=== PATIENT | female | born 1960 ===

== ENCOUNTER 2018-05-07 11:30 | Observation (INO) | payer BC ==
[2018-05-07] VITALS (9 sets, daily range): BP systolic 107–129; BP diastolic 68–80
[~2018-05-07] VITALS: Ht 157.5 cm; Wt 61.7 kg
[~2018-05-07 11:30] MED LIST: ALPRAZOLAM0.5 M2 ORAL; AMITRIPTYLINE25 MG ORAL; DOXYCYCLINE MO100 MG ORAL; FERROUS SULFAT325 MG ORAL; PREMARIN0.625 MG ORAL; SULFAMETHOXAZOLE PO; TRAMADOL HCL50 MG ORAL; VITAMIN D35000 UNIT PO; VITAMIN K2 PO
--- NOTE | 2018-05-07 12:48 | Anethesia Preoperative Eval ---
Anesthesia Pre-op PMH/ROS General Date of Evaluation: May 07, 2018 Anesthesiologist: Bunny ASA Score: ASA 2 Mallampati Score Class I : Soft palate, uvula, fauces, pillars visible Class II: Soft palate, uvula, fauces visible Class III: Soft palate, base of uvula visible Class IV: Only hard plate visible Mallampati Classification: Class II Surgeon: Eric Diagnosis: Left breast hematoma Surgical Procedure: Evacuation of left breast hematoma Anesthesia History: none Family History: no anesthesia problems Allergies: Coded Allergies: LACTOSE (Verified Allergy, Intermediate, 05/06/18) JOINT PAIN, SWELLING Mushroom (Verified Allergy, Intermediate, 05/06/18) JOINT PAIN, SWELLING PEANUT (Verified Allergy, Intermediate, 05/06/18) JOINT PAIN, SWELLING Pistachio (Verified Allergy, Intermediate, 05/06/18) JOINT PAIN, SWELLING Medications: see eMAR Past Medical History Cardiovascular: Denies: HTN, CAD, [place], valve dz, arrhythmia, other Pulmonary: Denies: asthma, COPD, TAMIE, other Gastrointestinal/Genitourinary: Denies: GERD, CRI, ESRD, other Neurologic/Psychiatric: Reports: depression/anxiety; Denies: dementia, CVA, TIA, other Endocrine: Denies: DM, hypothyroidism, steroids, other HEENT: Denies: cataract (L), cataract (R), glaucoma, [place] (L), [place] (R), other Hematology/Immune: Denies: anemia, DVT, bleeding disorder, other Musculoskeletal/Integumentary: Reports: other - RA; Denies: OA, RA, DJD, DDD, edema PSxH Narrative: Tummy tuck, bilateral breast surgery Anesthesia Pre-op Phys. Exam Physician Exam Last Vital Signs Date Time Temp Pulse Resp B/P (MAP) Pulse Ox O2 Delivery O2 Flow Rate FiO2 05/07/18 12:04 Room Air 05/07/18 12:03 97.4 74 18 112/73 (86) 97 97.4 Constitutional: NAD Cardiovascular: RRR Respiratory: CTA Airway Exam Mallampati Score: Class II MO: full ROM: full Teeth: intact Anesthesia Pre-op A/P Labs see chart Studies Pre-op Studies: EKG - sr Risk Assessment & Plan Assessment: ASA II Plan: GA Status Change Before Surgery: No Pre-Antibiotics Drug: Ancef 1g Given Within 1 Hr of Incision: Yes Rojas-[place],Linda MD May 07, 2018 12:48
[2018-05-07] MEDS ORDERED: Lidocaine 1% Plain 30 ml INJ ONE (13:23)
[2018-05-07] MEDS ORDERED: Bupivacaine 0.25% Inj 30ml INJ ONE (13:23)
[2018-05-07] MEDS ORDERED: Bacitracin 50000 Units Vial ONE (13:23)
[2018-05-07] MEDS ORDERED: NeoSporin Gu Irrig 1ml Amp IRRIG ONE (13:24)
[2018-05-07 13:41] LABS: BASOPHILS % (AUTO) 0.9 % (0.0-2.0); EOSINOPHILS % (AUTO) 2.6 % (0.0-3.0); HEMOGLOBIN 10.5 G/DL (12.0-16.0); LYMPHOCYTES % (AUTO) 21.6 % (20.0-45.0); MEAN CORPUSCULAR VOLUME 89 FL (80-99); MONOCYTES % (AUTO) 6.6 % (1.0-10.0); NEUTROPHILS % (AUTO) 68.3 % (45.0-75.0); PLATELET COUNT 350 K/UL (150-450); RED BLOOD COUNT 3.58 M/UL (4.20-5.40); RED CELL DISTRIBUTION WIDTH 13.3 % (11.6-14.8); WHITE BLOOD COUNT 7.1 K/UL (4.8-10.8)
[2018-05-07] MEDS ORDERED: Zemuron 50mg/5ml Inj IV ONE (13:41)
--- NOTE | 2018-05-07 13:43 | Pre-Procedure Note/Attestation ---
Pre-Procedure Note/Attestation Complete Prior to Procedure Planned Procedure: left Procedure Narrative: hematoma of left breast status post hematoma left breastand open capsulotomy 10 days ago Attestation I attest that I discussed the nature of the procedure; its benefits; risks and complications; and alternatives (and the risks and benefits of such alternatives ), prior to the procedure, with the patient (or the patient's legal sales account representative). I attest that, if there was a reasonable possibility of needing a blood transfusion, the patient (or the patient's legal sales account representative) was given the [facility] standardized written summary, pursuant to the Teo Elder Blood Safety Act ([place] Health and Safety Code # 1645, as amended). I attest that I re-evaluated the patient just prior to the surgery and that there has been no change in the patient's H&P, except as documented below: Richard Reyes MD May 07, 2018 13:43
[2018-05-07] MEDS ORDERED: LR 1000ml ONE (14:00)
[2018-05-07] MEDS ORDERED: NS Irrig 1000ml ONE (14:00)
[2018-05-07] MEDS ORDERED: Lidocaine 1% MPF 10mg/ml 5ml ONE (14:24)
[2018-05-07] MEDS ORDERED: Midazolam 2mg/2ml Inj ONE (14:24)
[2018-05-07] MEDS ORDERED: Propofol 200mg/20ml IV ONE (14:24)
[2018-05-07] MEDS ORDERED: fentaNYL 100 mcg/2 mL IV ONE (14:24)
[2018-05-07] MEDS ORDERED: LR 1000ml 1,000 ML IVLG SCH (14:29)
[2018-05-07] MEDS ORDERED: fentaNYL 100 mcg/2 mL IV PRN (14:30)
[2018-05-07] MEDS ORDERED: Labetalol 5mg/ml 20ml vial IV PRN (14:30)
[2018-05-07] MEDS ORDERED: LORazepam Inj 2mg/ml 1ml IV PRN (14:30)
[2018-05-07] MEDS ORDERED: Midazolam 2mg/2ml Inj IVP PRN (14:30)
[2018-05-07] MEDS ORDERED: DiphenhydrAMINE 50mg/ml Inj IVP PRN (14:30)
[2018-05-07] MEDS ORDERED: Metoclopramide 10mg/2ml Inj IVP PRN (14:30)
[2018-05-07] MEDS ORDERED: Hydromorphone 0.5mg/0.5ml inj IVP PRN (14:30)
[2018-05-07] MEDS ORDERED: Bacitracin Oint 15gm Tube TOPIC ONE ×2 (14:35→14:48)
[2018-05-07] MEDS ORDERED: Bacitracin 50000 Units Vial IRRIG ONE (14:35)
--- NOTE | 2018-05-07 15:07 | Immediate Post-Op Evaluation ---
Immediate Post-Op Evalulation Immediate Post-Op Evalulation Procedure: Evacuation of left breast and bilateral neck hematoma Date of Evaluation: May 07, 2018 Time of Evaluation: 15:01 IV Fluids: 500 Blood Products: 0 Estimated Blood Loss: 350 Urinary Output: 0 Blood Pressure Systolic: 114 Blood Pressure Diastolic: 68 Pulse Rate: 72 Respiratory Rate: 16 O2 Sat by Pulse Oximetry: 99 Temperature (Fahrenheit): 97 Pain Score (1-10): 0 Nausea: No Vomiting: No Complications 0 Patient Status: awake, reacts, patent, none Hydration Status: adequate Drug: Ancef 1g Given Within 1 Hr of Incision: Yes Time Given: 14:15 Linda Lugo MD May 07, 2018 15:07
--- NOTE | 2018-05-07 15:08 | 48 Hour Post Anesthesia Eval ---
Post Anesthesia Evaluation Procedure: Evacuation of left breast and bilateral neck hematoma Date of Evaluation: May 07, 2018 Nausea: No Vomiting: No Pain Intensity: 0 Hydration Status: adequate Cardiopulmonary Status: at baseline Mental Status/LOC: patient returned to baseline Post-Anesthesia Complications: 0 Follow-up care needed: ready to discharge Linda Lugo MD May 07, 2018 15:08
[2018-05-07] MEDS ORDERED: Phytonadione 10 mg/mL 1ml amp SUBQ SCH (15:15)
[2018-05-07] MEDS: Norco 5mg/325mg tab ORAL PRN ×2 (17:37→21:49)
[2018-05-07] MEDS: Bactrim-DS 1 tab ORAL SCH (17:38)
[2018-05-08] VITALS: BP 121/75
[2018-05-08 04:00] VITALS: BP 114/76
[2018-05-08] MEDS: Norco 5mg/325mg tab ORAL PRN (05:11)
[2018-05-08] MEDS: Bactrim-DS 1 tab ORAL SCH (07:32)
--- NOTE | 2018-05-08 07:32 | 48 Hour Post Anesthesia Eval ---
Post Anesthesia Evaluation Procedure: Evacuation of left breast and bilateral neck hematoma Date of Evaluation: May 08, 2018 Time of Evaluation: 07:31 Blood Pressure Systolic: 116 0: 58 Pulse Rate: 64 Respiratory Rate: 20 Temperature (Fahrenheit): 97.5 O2 Sat by Pulse Oximetry: 98 Airway: patent Nausea: No Vomiting: No Pain Intensity: 2 Hydration Status: adequate Cardiopulmonary Status: stable Mental Status/LOC: patient returned to baseline Follow-up Care/Observations: n/a Post-Anesthesia Complications: none Follow-up care needed: N/A Shawn Ocampo MD May 08, 2018 07:32
[2018-05-08 12:00] VITALS: BP 117/73
[2018-05-08 13:49] LABS: BASOPHILS % (AUTO) 0.4 % (0.0-2.0); EOSINOPHILS % (AUTO) 0.6 % (0.0-3.0); HEMOGLOBIN 10.7 G/DL (12.0-16.0); LYMPHOCYTES % (AUTO) 12.3 % (20.0-45.0); MEAN CORPUSCULAR VOLUME 89 FL (80-99); MONOCYTES % (AUTO) 4.5 % (1.0-10.0); NEUTROPHILS % (AUTO) 82.2 % (45.0-75.0); PLATELET COUNT 346 K/UL (150-450); RED CELL DISTRIBUTION WIDTH 13.1 % (11.6-14.8); WHITE BLOOD COUNT 9.7 K/UL (4.8-10.8)
[2018-05-08 13:56] LABS: INR 0.9 (0.9-1.1)
[2018-05-08 14:08] LABS: ANION GAP 8 mmol/L (5-15); BLOOD UREA NITROGEN 9 mg/dL (7-18); CALCIUM 8.7 MG/DL (8.5-10.1); CARBON DIOXIDE 27 MMOL/L (21-32); CHLORIDE 93 MMOL/L (98-107); CREATININE 0.5 MG/DL (0.55-1.30); SODIUM 128 MMOL/L (136-145)
[2018-05-08] MEDS ORDERED: BACTRIM DS TAB1 EAC1 ORAL (14:44)
--- NOTE | 2018-05-08 20:45 | Operative Note - Dictated ---
DATE OF OPERATION: PREOPERATIVE DIAGNOSIS: Left breast encapsulation. POSTOPERATIVE DIAGNOSIS: Left breast encapsulation. PROCEDURE PERFORMED: Left breast open capsulotomy. SURGEON: Richard Reyes M.D. PAN DEVULCANIZER HELPER: None. ANESTHESIOLOGIST: Linda Lugo M.D. PREOPERATIVE DIAGNOSIS: Hematoma left breast status post open capsulotomy left side with vertical lift on both sides. She also has a posterior reverse neck lift. The patient had some minor bruising in both sides of the neck with a tiny what appeared to be a little bubble on both sides and hematoma of the left breast that was 10 days ago, we evacuated 200 mL of blood. The patient was told that there is more blood in there that the blood would be liquified at this point and would be easily removed and we might put a needle in the left neck to see if there is any blood. The patient understood the risks, complications, and alternative methods of treatment. The patient had realistic expectations and was brought to the operating room and placed in supine position and given general inhalation anesthesia, was prepped and then injected with 1% Xylocaine 1:200,000 of epinephrine. I entered into the space and then placed a metal suction tip, raised the tip into the pocket, irrigated, suctioned out and got approximately 300 mL of saline and blood. The patient then was closed using a 3-0 Vicryl suture in the dermis and a 4-0 interrupted suture in the skin. We then turned our attention to the other area, which was the neck on both sides. In pressing the area, a tiny little blood just popped. It was cyst and it flattened out completely. I attempted to take out some blood from the left side of the neck and there was less than a mL. On the right side, there was . The patient was then extubated and transferred to the postoperative recovery facility in satisfactory condition with 4x4s and bacitracin over the incision and the neck just in cold compressors. Blood loss of the left breast was approximately between 275 mL and 300 mL and the left side of the neck was less than a mL. Richard Reyes M.D. DR: DANIELLE JOB#: [id number] CC: LAURIE
--- NOTE | 2018-05-09 | Consultation ---
DATE OF CONSULTATION: 05/08/2018 HEMATOLOGY/ONCOLOGY CONSULTATION CONSULTING PHYSICIAN: Arias Hansen M.D. REFERRING PHYSICIAN: Richard Reyes M.D. REASON FOR CONSULTATION: Bleeding diathesis. IDENTIFICATION DATA: Dear Dr. Reyes, The patient is a pleasant 57-year-old female, recently admitted to [facility] for hematoma evaluation along the left neck and the left breast, history of bleeding diathesis. Apparently, the patient had recent surgery at this site and has had prolonged bleeding. No history of bleeding diathesis in the mother or father or first-degree relatives. Procedure performed without any complications. H and H checked afterwards. INR 0.9. Hemoglobin 10.7. Hematology/Oncology service was consulted for evaluation and underlying treatment of potential bleeding diathesis. PAST MEDICAL HISTORY: Anemia of iron deficiency. Otherwise, none noted. PAST SURGICAL HISTORY: Open capsulotomy 10 days ago status post hematoma. ALLERGIES: , mushroom, peanuts, pistachio. SOCIAL HISTORY: No alcohol, tobacco, or illicit drug use. REVIEW OF SYSTEMS: A 12-point review of systems is completed. Otherwise, negative. PHYSICAL EXAMINATION: VITAL SIGNS: Reviewed. GENERAL: No acute distress. BREASTS AND NECK: Left-sided surgical site is noted. Dressing change is in place. PULMONARY: Decreased breath sounds. CARDIOVASCULAR: Regular rate. No S3 or S4. ABDOMEN: Soft, nontender, and nondistended. EXTREMITIES: No cyanosis, swelling, or edema noted. LABORATORY DATA: WBC 11.5, hemoglobin of 10.7, and platelet count of 146. INR 0.9. Glucose 124. ASSESSMENT AND RECOMMENDATIONS: 1. Bleeding diathesis. Potentially, the patient either has hemophilia or von Willebrand. At this time, no major surgical complications. Okay for discharge. H and H stable. Has a Hematology appointment on 05/16/2018. She will need further evaluation. 2. Anemia due to underlying iron deficiency. Continue the patient on p.o. ferrous sulfate. 3. Hypokalemia. Administer IV fluids. 4. Pain disorder along the hematoma. On [place]. 5. Mild headache. Begin Tylenol p.r.n. 6. Multiple allergies. 7. History of breast reduction at age 39. 8. Stable for discharge. I appreciate the consultation. Arias Wei Hansen DR: BRITT JOB#: [id number] CC:
--- NOTE | 2018-05-13 10:51 | Discharge Summary ---
Discharge Summary Hospital Course Date of Admission May 07, 2018 at 16:00 Date of Discharge May 08, 2018 at 16:03 Admitting Diagnosis Left breast hematoma Reason for Hospitalization: surgery - Left breast open capsulotomy. SUE Hernandez is a 57 year old female who was admitted on May 07, 2018 at 16: 00 for hematoma of the left breast. She was admitted for elective surgery. Consultations dr Hansen -vault person, IM Procedures s/p 05/07/[address] Reyes Right breast open capsulotomy. Hospital Course 57 years old female with a hematoma of left breast, status post left breast open capsulotomy 10 days ago with evacuation of 200 ml of blood Patient was brought back for further hematoma Patient also had minor bruising in both sides of the neck s/p surgery 05/07 blood loss of the left breast was between 275 and 300 mL and left side of the neck less than 1 mm vault person consult was requested for bleeding diathesis patient with history of iron deficiency anemia per vault person , patient potentially may have either hemophilia or von Willebrand's disease. at time of examination no major surgical complications, hemoglobin and hematocrit stable outpatient hematology appointment was made for for further evaluation and workup patient to continue on oral ferrous sulfate upon discharge pain management addressed patient was stable for discharge discharge instruction provided outpatient follow-up with surgeon and vault person FINAL DIAGNOSES Left breast encapsulation. s/p evacuation of left breast and bilateral neck hematoma bleeding diathesis iron deficiency anemia Discharge Medications Continued Medications: Alprazolam (Alprazolam) 0.5 Mg Tab.rapdis 0.5 MG ORAL NEEDED, TAB (This prescription has been renewed) Amitriptyline HCl (Elavil*) 25 Mg Tablet 25 MG ORAL NEEDED, TAB (This prescription has been renewed) Cholecalciferol (Vitamin D3) (Vitamin D3) 5,000 Unit Capsule 5000 UNIT PO DAILY, CAP (This prescription has been renewed) Doxycycline Monohydrate* (Doxycycline Monohydrate*) 100 Mg Capsule 100 MG ORAL TWICE A DAY, #14 CAP 0 Refills (This prescription has been renewed) Estrogens Conjugated (Premarin) 0.625 Mg Tablet 0.625 MG ORAL DAILY, #30 TAB 0 Refills (This prescription has been renewed) Ferrous Sulfate* (Ferrous Sulfate*) 325 Mg Tablet 325 MG ORAL DAILY, #30 TAB 0 Refills (This prescription has been renewed) Tramadol Hcl* (Ultram*) 50 Mg Tablet 50 MG ORAL Q6H PRN for For Pain, #30 TAB 0 Refills (This prescription has been renewed) Trimethoprim/Sulfamethoxazole 160/800* (Bactrim Ds Tablet*) 1 Each Tablet 1 TAB ORAL TWICE A DAY for 5 Days, TAB (This prescription has been renewed) Discharge Condition Upon Discharge: stable Discharge Disposition Patient was discharged to Home (01) Discharge Instructions Discharge Instructions Special Instructions I have been assigned to complete a D/C Summary on this account. I was not involved in the patient management Colleen Sandoval NP May 13, 2018 10:51
== END 2018-05-08 16:03 | disposition home or self-care (01) ==
LOC: SUR 11:30 → 4E 16:00
DX: L76.32 Postprocedural hematoma of skin and subcutaneous tissue following other procedure (principal); Y83.8 Other surgical procedures as the cause of abnormal reaction of the patient, or of later complication, without mention of misadventure at the time of the procedure; D69.9 Hemorrhagic condition, unspecified; N64.89 Other specified disorders of breast; D50.9 Iron deficiency anemia, unspecified; E87.6 Hypokalemia; R51 Headache; Z91.018 Allergy to other foods; Z91.010 Allergy to peanuts
CPT/HCPCS: 10140; 36415; 80048; 85025; 85610; 85730; 87070; 87075; 87181; 87205; 96374; J0690; J2001; J2250; J2405; J2704; J3010; J3430; J3490; J7120; 94003; 94150; G0378